=== PATIENT | male | born 1960 | race Caucasian/White ===

== ENCOUNTER → 2016-11-30 | Outpatient (CLI) | payer MEDICARE | LOC: EXRD 11:33 | DX: J18.9 Pneumonia, unspecified organism (principal) | CPT/HCPCS: 71020 ==

== ENCOUNTER 2016-12-31 15:51 | Emergency (ER) | payer MEDICARE ==
[2016-12-31 17:19] LABS: HEMOGLOBIN 11.4 gm/dl (14.0-17.5); RED BLOOD COUNT 3.56 M/UL (4.20-5.50); WHITE BLOOD COUNT 11.8 K/UL (4.5-11.0)
[2016-12-31 17:33] LABS: BUN/CREATININE RATIO 10 (0-10)
== END 2016-12-31 18:55 | disposition home or self-care (01) ==
LOC: ER1 15:51
PROVIDERS: Student in an Organized Health Care Education/Training Program
DX: J44.1 Chronic obstructive pulmonary disease with (acute) exacerbation (principal); I10 Essential (primary) hypertension; I25.10 Atherosclerotic heart disease of native coronary artery without angina pectoris; F17.210 Nicotine dependence, cigarettes, uncomplicated; Z95.810 Presence of automatic (implantable) cardiac defibrillator; Z90.49 Acquired absence of other specified parts of digestive tract; Z88.8 Allergy status to other drugs, medicaments and biological substances; Z79.82 Long term (current) use of aspirin; Z79.02 Long term (current) use of antithrombotics/antiplatelets; Z79.899 Other long term (current) drug therapy
CPT/HCPCS: 36415; 71020; 80053; 82550; 82553; 83605; 83874; 84484; 84550; 85025; 87040; 93005; 94664; 96374; 99285; J2930

== ENCOUNTER → 2020-12-31 | Outpatient (CLI) | payer MEDICARE ==
[~2020-12-31] MED LIST: ADVAIR 250-501 EACH INH; ASPIR-TRIN325 MG PO; AUGMENTIN 875-1 EACH PO; BUSPAR 10MG10 MG PO; IPRAT-ALBUT 0.5-3 ML NEB; LIPITOR TAB 2020 MG PO; LOPRESSOR 25 MG25 MG PO; LORTAB 5-325 M1 EACH PO; MEDROL DOSEPAK 24 MG PO; PLAVIX 75 MG TA75 MG PO; PRINIVIL20 MG PO; PROTONIX 40 MG40 M1 PO; RANITIDINE HCL300 MG PO; SEROQUEL100 MG PO; SPIRIVA RESPIMAT4 GM INH; SYMBICORT 16010.2 GM INH; VENTOLIN HFA 66.7 GM INH; ZOLOFT50 MG PO
== END ==
LOC: HEART 5 12-21 09:00
DX: I20.9 Angina pectoris, unspecified (principal); I47.2 Ventricular tachycardia; R93.1 Abnormal findings on diagnostic imaging of heart and coronary circulation
CPT/HCPCS: 78452; A9502; J2785

== ENCOUNTER → 2021-01-07 | Outpatient (CLI) | payer MEDICARE | LOC: HEART 5 09:00 | DX: I20.9 Angina pectoris, unspecified (principal); I47.2 Ventricular tachycardia; I10 Essential (primary) hypertension; I07.1 Rheumatic tricuspid insufficiency; Z95.0 Presence of cardiac pacemaker | CPT/HCPCS: 93306 ==

== ENCOUNTER → 2021-06-04 | Outpatient (CLI) | payer MEDICARE ==
[~2021-06-04] MED LIST changes: +ALBUTEROL1.25 MG/3 INH; +CLINDAMYCIN HC300 MG PO; +FLONASE ALLER15.8 ML; +FOSAMAX70 MG PO; +HYDROCODON-ACE1 EAC4 PO; +LEVOFLOXACIN500 MG PO; +NITROSTAT0.4 MG SL; +SPIRIVA HANDIH18 MCG INH; +VITAMIN D21250 MCG PO
== END ==
LOC: CATH 09:46
DX: Z45.02 Encounter for adjustment and management of automatic implantable cardiac defibrillator (principal); I47.2 Ventricular tachycardia; I25.10 Atherosclerotic heart disease of native coronary artery without angina pectoris; I11.0 Hypertensive heart disease with heart failure; I50.22 Chronic systolic (congestive) heart failure; E78.5 Hyperlipidemia, unspecified; F17.210 Nicotine dependence, cigarettes, uncomplicated; F41.9 Anxiety disorder, unspecified; M19.90 Unspecified osteoarthritis, unspecified site; J44.9 Chronic obstructive pulmonary disease, unspecified; I42.0 Dilated cardiomyopathy; K21.9 Gastro-esophageal reflux disease without esophagitis; M81.0 Age-related osteoporosis without current pathological fracture; M10.9 Gout, unspecified; Z86.73 Personal history of transient ischemic attack (TIA), and cerebral infarction without residual deficits; Z88.8 Allergy status to other drugs, medicaments and biological substances; Z79.82 Long term (current) use of aspirin; Z79.02 Long term (current) use of antithrombotics/antiplatelets; Z79.899 Other long term (current) drug therapy
CPT/HCPCS: 33240; 93641; 99152; 99153; C1721; J2250; J3010; J3370; J7040; J7050

== ENCOUNTER → 2021-07-23 | Outpatient (CLI) | payer MEDICARE ==
[2021-07-23 10:57] LABS: HEMOGLOBIN 12.1 gm/dl (14.0-17.5); RED BLOOD COUNT 3.78 M/UL (4.20-5.50); WHITE BLOOD COUNT 6.1 K/UL (4.5-11.0)
[2021-07-23 11:40] LABS: BUN/CREATININE RATIO 9 (0-10)
== END ==
LOC: CATH 09:49
PROVIDERS: Internal Medicine Cardiovascular Disease
DX: I25.118 Atherosclerotic heart disease of native coronary artery with other forms of angina pectoris (principal); I42.0 Dilated cardiomyopathy; I11.0 Hypertensive heart disease with heart failure; I50.22 Chronic systolic (congestive) heart failure; I47.2 Ventricular tachycardia; J44.9 Chronic obstructive pulmonary disease, unspecified; D64.9 Anemia, unspecified; M19.90 Unspecified osteoarthritis, unspecified site; I73.9 Peripheral vascular disease, unspecified; G89.29 Other chronic pain; J18.9 Pneumonia, unspecified organism; F32.A Depression, unspecified; K21.9 Gastro-esophageal reflux disease without esophagitis; E78.5 Hyperlipidemia, unspecified; G47.00 Insomnia, unspecified; D47.2 Monoclonal gammopathy; E55.9 Vitamin D deficiency, unspecified; F17.210 Nicotine dependence, cigarettes, uncomplicated; F41.9 Anxiety disorder, unspecified; I25.2 Old myocardial infarction; Z79.899 Other long term (current) drug therapy; Z90.49 Acquired absence of other specified parts of digestive tract; Z98.890 Other specified postprocedural states
CPT/HCPCS: 36415; 80048; 85025; 99152; C1769; C1894; J1644; J2250; J3010; J7030; Q9967

== ENCOUNTER 2021-08-21 21:41 | Inpatient (IN) | payer MEDICARE, MEDICAID ==
[~2021-08-21] VITALS: Ht 182.9 cm; Wt 70.3 kg
[~2021-08-21 21:41] MED LIST changes: +PROAIR HFA8.5 GM INH; -VENTOLIN HFA 66.7 GM INH
[2021-08-21 22:28] LABS: HEMOGLOBIN 12.5 gm/dl (14.0-17.5); RED BLOOD COUNT 3.89 M/UL (4.20-5.50); WHITE BLOOD COUNT 6.2 K/UL (4.5-11.0)
[2021-08-21 23:16] LABS: BUN/CREATININE RATIO 14 (0-10)
[2021-08-22] MEDS ORDERED: ASPIRIN EC81 MG PO (09:49)
[2021-08-22] MEDS ORDERED: SYMBICORT 16010.2 GM INH (09:51)
[2021-08-22] MEDS ORDERED: METOPROLOL TART25 MG PO (09:52)
[2021-08-23 09:29] LABS: HEMOGLOBIN 11.4 gm/dl (14.0-17.5); RED BLOOD COUNT 3.64 M/UL (4.20-5.50); WHITE BLOOD COUNT 4.8 K/UL (4.5-11.0)
[2021-08-23 09:54] LABS: BUN/CREATININE RATIO 11 (0-10)
[2021-08-24 04:57] LABS: HEMOGLOBIN 11.5 gm/dl (14.0-17.5); RED BLOOD COUNT 3.6 M/UL (4.20-5.50); WHITE BLOOD COUNT 4.2 K/UL (4.5-11.0)
[2021-08-24 05:26] LABS: BUN/CREATININE RATIO 10 (0-10)
== END 2021-08-24 19:12 | disposition home or self-care (01) | DRG 69 ==
LOC: ER1 21:41 → MED SURG 4 08-22 02:45 → CDU 08-22 02:45 → MED SURG 4 08-22 16:55
PROVIDERS: Emergency Medicine; Internal Medicine; ADMIT Internal Medicine
DX: G45.9 Transient cerebral ischemic attack, unspecified (principal); I42.0 Dilated cardiomyopathy; I10 Essential (primary) hypertension; I73.9 Peripheral vascular disease, unspecified; F32.A Depression, unspecified; F41.9 Anxiety disorder, unspecified; F17.210 Nicotine dependence, cigarettes, uncomplicated; E78.5 Hyperlipidemia, unspecified; Z20.822 Contact with and (suspected) exposure to COVID-19; I25.10 Atherosclerotic heart disease of native coronary artery without angina pectoris; Z96.652 Presence of left artificial knee joint; R74.01 Elevation of levels of liver transaminase levels; Z95.810 Presence of automatic (implantable) cardiac defibrillator; Z95.5 Presence of coronary angioplasty implant and graft; Z86.73 Personal history of transient ischemic attack (TIA), and cerebral infarction without residual deficits; Z90.49 Acquired absence of other specified parts of digestive tract; Z98.890 Other specified postprocedural states; Z88.8 Allergy status to other drugs, medicaments and biological substances; Z82.49 Family history of ischemic heart disease and other diseases of the circulatory system; Z82.3 Family history of stroke; Z79.899 Other long term (current) drug therapy; Z79.82 Long term (current) use of aspirin
CPT/HCPCS: ECHO; 36415; 70450; 70496; 70498; 71045; 80053; 80061; 82550; 82553; 83874; 83880; 84439; 84443; 84484; 85025; 85027; 85610; 85730; 92610; 93005; 93306; 94640; 94664; 94760; 97161; 97165; 99285; J1650; J2270; J2405; Q9967; U0002

== ENCOUNTER → 2021-10-28 | Outpatient (CLI) | payer MEDICARE ==
[~2021-10-28] MED LIST changes: +ASPIRIN EC81 MG PO; +METOPROLOL TART25 MG PO
== END ==
LOC: RAD 16:44
DX: J44.9 Chronic obstructive pulmonary disease, unspecified (principal); R06.02 Shortness of breath; Z77.098 Contact with and (suspected) exposure to other hazardous, chiefly nonmedicinal, chemicals
CPT/HCPCS: 71046

== ENCOUNTER → 2022-01-04 | Outpatient (CLI) | payer MEDICARE | LOC: KOH-I 12:25 | DX: F17.200 Nicotine dependence, unspecified, uncomplicated (principal); Z71.2 Person consulting for explanation of examination or test findings | CPT/HCPCS: 77075 ==

== ENCOUNTER → 2022-01-05 | Outpatient (CLI) | payer MEDICARE | LOC: EXRD 12-27 14:00 | DX: M81.0 Age-related osteoporosis without current pathological fracture (principal); F17.200 Nicotine dependence, unspecified, uncomplicated | CPT/HCPCS: 77080 ==

== ENCOUNTER → 2022-02-01 | Outpatient (CLI) | payer MEDICARE | LOC: KOH-I 14:30 | DX: F17.210 Nicotine dependence, cigarettes, uncomplicated (principal); R91.1 Solitary pulmonary nodule | CPT/HCPCS: 71271 ==